=== PATIENT | male | born 1995 | race Hispanic/Latino ===

== ENCOUNTER 2016-08-05 12:20 | Emergency (ER) | payer SELFPAY ==
[2016-08-05] MEDS ORDERED: NEO/POLY/HC OTIC SUSP 10 ML BTTL ONE (12:45)
[2016-08-05 12:53] VITALS: O2SAT 99
--- NOTE | 2016-08-05 12:56 | ED.PDOC ---
History of Present Illness - General Chief Complaint: ENT Problem Stated Complaint: L ear discomfort Time Seen by Provider: 08/05/16 12:36 Source: patient Exam Limitations: no limitations - History of Present Illness Initial Comments: Mickey Ham 20 y/o male stated that he had been hurting on his left ear for 7 days getting worse.No history of ear barotrauma or uri.Stated tried to wash it out with water the last few days. Timing/Duration: gradual, last week EENT Location: ear (L) Prearrival Treatment: no prearrival treatment Improving Factors: nothing Worsening Factors: nothing Associated Symptoms: denies symptoms Allergies/Adverse Reactions: Allergies NO KNOWN ALLERGY Allergy (Verified 08/05/16 12:52) Home Medications: Ambulatory Orders Acetaminophen W/ Codeine [Tylenol w/Codeine 300-30 mg] 1 tab PO TID #7 tab 08/05 Review of Systems - Review of Systems Constitutional: States: no symptoms reported EENTM: States: see HPI Respiratory: States: no symptoms reported Cardiology: States: no symptoms reported Gastrointestinal/Abdominal: States: no symptoms reported Genitourinary: States: no symptoms reported Musculoskeletal: States: no symptoms reported Skin: States: no symptoms reported Neurological: States: no symptoms reported Hematologic/Lymphatic: States: no symptoms reported Past Medical History (General) - Patient Medical History Hx Seizures: No Hx Asthma: No Hx Hypertension: No Family Medical History - Family History Maternal Family History: No Known Physical Exam - Physical Exam General Appearance: Alert, Comfortable, No apparent distress Eye Exam: bilateral normal Ear Exam: left ear: canal normal - hyperemic ear canal with swelling, bilateral ear: auricle normal, TM normal Nasal Exam: normal inspection Throat Exam: normal mouth inspection, pharynx normal Neck: non-tender, full range of motion, supple Cardiovascular/Respiratory: regular rate, rhythm, no M/R/G, normal peripheral pulses, no JVD Abdominal Exam: non-tender, no organomegaly Neurologic: no motor/sensory deficits, alert Skin Exam: normal color, warm/dry Departure - Departure Clinical Impression: Otitis externa Qualifiers: Otitis externa type: unspecified type Laterality: left Chronicity: acute Qualified Code(s): H60.502 - Unspecified acute noninfective otitis externa, left ear Time of Disposition: 13:00 Disposition: Discharge to Home or Self Care Condition: Good Departure Forms: ED Discharge - Pt. Copy, Patient Portal Self Enrollment Instructions: DI for Otitis Externa, Otitis Externa Referrals: LENIN PETERSON DIE [facility]OUNTER [Primary Care Provider] - 1-2 Weeks Prescriptions: Acetaminophen W/ Codeine [Tylenol w/Codeine 300-30 mg] 1 tab PO TID #7 tab Home Medications: Ambulatory Orders Acetaminophen W/ Codeine [Tylenol w/Codeine 300-30 mg] 1 tab PO TID #7 tab 08/05 Additional Instructions: Continue with Corticosporin otic drops-2 drops 3 x a day for 10 days; Return to Emergency room as needed
[2016-08-05 13:53] VITALS: TEMP 100
[2016-08-05 13:55] VITALS: BP 125/75
== END 2016-08-05 13:08 | disposition home or self-care (01) ==
LOC: ER 12:20
DX: H60.502 Unspecified acute noninfective otitis externa, left ear (principal)